=== PATIENT | male | born 1955 ===

== ENCOUNTER 2020-03-13 08:16 | Day surgery (SDC) | payer BC ==
[~2020-03-13 08:16] MED LIST: EPINEPHrine 1 MG/ML 30 ML MDV IRR SCH; Ketorolac 15 MG/ML SDV ONE; Lactated Ringers 1,000 ML ONE; Lidocaine 1% 4 ML ONE; Lidocaine 1%/Sod Bicarbonate in NS 8.4% 1 ML Syringe IDERM PRN; Midazolam 1 MG/ML 2 ML SDV ONE; Ondansetron 4 MG/2 ML SDV ONE; Propofol 200 MG/20 ML SDV ONE; Rocuronium 50 MG/5 ML Vial ONE; Sodium Chloride 0.9% 10 ML Syringe FLUSH PRN; Succinylcholine/Sod PF 100 MG/5 ML SYRINGE IV ONE; ceFAZolin 1 GM Vial ONE; fentaNYL 100 MCG/2 ML SDV ONE
[2020-03-13] MEDS: Lactated Ringers 1,000 ML IV SCH ×2 (08:28→11:32)
--- NOTE | 2020-03-13 09:11 | PCM.PREANE ---
Preanesthetic Assessment - Procedure Proposed Procedure: Left knee video arthroscopy with partial medial menisectomy - Anesthesia/Transfusion/Family Hx Anesthesia History: Prior Anesthesia Without Reaction Family History of Anesthesia Reaction: No - Review of Systems General: No Symptoms Pulmonary: No Symptoms Cardiovascular: Other (Negative stress test and cardiac work up in 2018 ) Gastrointestinal: Other (History of gastroparesis had an EGD and was positive for H Pylori, has been treated and no longer has symptoms, currently weaning of his medications and is down to every other day with no heartburn symptoms. ) Neurological: No Symptoms Other: Reports: Diabetes (Type II, well controlled per patient. 162 mg/dl at 0831 today. ) - Physical Assessment NPO Status Date: 03/12/20 NPO Status Time: 19:00 (Soup) Vital Signs: Last Vital Signs Temp 36.2 C 03/13/20 08:10 Pulse 77 03/13/20 08:10 Resp 19 03/13/20 08:10 BP 124/74 03/13/20 08:10 Pulse Ox 97 03/13/20 08:10 Height: 1.73 m Weight: 93.9 kg ASA Class: 2 Mental Status: Alert & Oriented x3 Airway Class: Mallampati = 3 Dentition: Reports: [employer] Thyro-Mental Finger Breadths: 3 Mouth Opening Finger Breadths: 3 ROM/Head Extension: Full (Abreu) Lungs: Clear to Auscultation, Normal Respiratory Effort Cardiovascular: Regular Rate, Regular Rhythm - Lab Values: Laboratory Last Values POC Glucose 162 mg/dL (80-115) H 03/13/20 08:31 MRSA (PCR) Negative 02/27/20 13:25 - Allergies Allergies/Adverse Reactions: Allergies Allergy/AdvReac Type Severity Reaction Status Date / Time lisinopril Allergy Swelling Verified 03/13/20 08:57 - Anesthesia Plan Pre-Op Medication Ordered: Anxiolytic - Acknowledgements Anesthesia Type Planned: General Anesthesia (LMA with gastric suction port. ) Pt an Appropriate Candidate for the Planned Anesthesia: Yes Alternatives and Risks of Anesthesia Discussed w Pt/Guardian: Yes Pt/Guardian Understands and Agrees with Anesthesia Plan: Yes PreAnesthesia Questionnaire HEENT History: Reports: Impaired Vision, Other (See Below) Other HEENT History: wears glasses Cardiovascular History: Reports: High Cholesterol, Hypertension Respiratory History: Reports: None Gastrointestinal History: Reports: Hiatal Hernia, Other (See Below) Other Gastrointestinal History: barretts, elevated LFTs, gastroparesis Genitourinary History: Reports: None SEARCH OPTIMIZATION ANALYST History: Reports: None Musculoskeletal History: Reports: Other (See Below) Other Musculoskeletal History: left meniscus injury Neurological History: Reports: None Psychiatric History: Reports: None Endocrine/Metabolic History: Reports: Diabetes, Type II Hematologic History: Reports: None Immunologic History: Reports: None Oncologic (Cancer) History: Reports: None Dermatologic History: Reports: None - Infectious Disease History Infectious Disease History: Reports: None - Past Surgical History Head Surgeries/Procedures: Reports: None HEENT Surgical History: Reports: None Cardiovascular Surgical History: Reports: None Respiratory Surgical History: Reports: None GI Surgical History: Reports: Appendectomy, Colonoscopy, EGD Female Surgical History: Reports: None Male Surgical History: Reports: None Endocrine Surgical History: Reports: None Neurological Surgical History: Reports: None Musculoskeletal Surgical History: Reports: None Oncologic Surgical History: Reports: None Dermatological Surgical History: Reports: None - SUBSTANCE USE Tobacco Use Status *Q: Never Tobacco User Recreational Drug Use History: No - HOME MEDS Home Medications: Home Meds Losartan [Cozaar] 100 mg PO DAILY 03/23/16 [History] Simvastatin 40 mg PO DAILY 03/23/16 [History] metFORMIN [Glucophage] 1,000 mg PO BID 03/23/16 [History] Empagliflozin [Jardiance] 10 mg PO DAILY 03/12/20 [History] L.acidoph,Paracasei, B.lactis [Probiotic] 1 cap PO DAILY 03/12/20 [History] Liraglutide [Victoza] 1.8 mg SQ DAILY 03/12/20 [History] Metoclopramide [Reglan] 5 mg PO BEDTIME 03/12/20 [History] Acetaminophen/HYDROcodone [[place] 325-5 MG] 1 - 2 tab PO Q6H PRN #20 tablet 03/13/20 [Rx] Aspirin [Aspirin EC] 325 mg PO BID #84 tab 03/13/20 [Rx] - CURRENT (IN HOUSE) MEDS Current Meds: Current Medications Epinephrine HCl (Adrenalin) 3 mg IRR ONETIME KHRIS Stop: 03/13/20 18:00 Lactated Ringer's (Ringers, Lactated) 1,000 mls @ 125 mls/hr IV ASDIRECTED KHRIS Stop: 03/13/20 23:00 Last Admin: 03/13/20 08:28 Dose: 125 mls/hr Documented by: Lidocaine/Sodium Bicarbonate (Buffered Lidocaine 1% In Ns 8.4%) 0.25 ml IDERM ONETIME PRN PRN Reason: Prior to IV Start Stop: 03/13/20 18:00 Sodium Chloride (Saline Flush) 10 ml FLUSH ASDIRECTED PRN PRN Reason: Keep Vein Open Stop: 03/13/20 18:00 Discontinued Medications Cefazolin Sodium (Ancef) Confirm Administered Dose 2 gm .ROUTE .STK-MED ONE Stop: 03/13/20 07:58 Fentanyl (Sublimaze) Confirm Administered Dose 100 mcg .ROUTE .STK-MED ONE Stop: 03/13/20 08:00 Lidocaine HCl (Xylocaine-Mpf 1%) Confirm Administered Dose 4 mls @ as directed .ROUTE .STK-MED ONE Stop: 03/13/20 07:58 Lactated Ringer's (Ringers, Lactated) Confirm Administered Dose 1,000 mls @ as directed .ROUTE .STK-MED ONE Stop: 03/13/20 07:58 Ketorolac Tromethamine (Toradol) Confirm Administered Dose 15 mg .ROUTE .STK-MED ONE Stop: 03/13/20 07:59 Midazolam HCl (Versed 1 Mg/Ml) Confirm Administered Dose 2 mg .ROUTE .STK-MED ONE Stop: 03/13/20 07:59 Ondansetron HCl (Zofran) Confirm Administered Dose 4 mg .ROUTE .STK-MED ONE Stop: 03/13/20 07:58 Propofol (Diprivan 20 Ml) Confirm Administered Dose 400 mg .ROUTE .STK-MED ONE Stop: 03/13/20 07:59 Rocuronium [place] (Zemuron) Confirm Administered Dose 50 mg .ROUTE .STK-MED ONE Stop: 03/13/20 07:58
[2020-03-13] MEDS ORDERED: Bupivacaine 0.25% 10 ML SDV ONE (09:36)
[2020-03-13] MEDS ORDERED: Ketamine 500 mg/10 ML MDV ONE (10:18)
[2020-03-13] MEDS ORDERED: ePHEDrine 50 MG/ML SDV ONE (10:43)
--- NOTE | 2020-03-13 11:11 | PCM.POSTAN ---
POST ANESTHESIA ASSESSMENT - MENTAL STATUS Mental Status: Somnolent - VITAL SIGNS Vital Signs: Last Vital Signs Temp 36.2 C 03/13/20 08:10 Pulse 77 03/13/20 08:10 Resp 19 03/13/20 08:10 BP 124/74 03/13/20 08:10 Pulse Ox 97 03/13/20 08:10 - RESPIRATORY Respiratory Status: Respiratory Rate WNL, Airway Patent, O2 Saturation Stable, Supplemental Oxygen - CARDIOVASCULAR CV Status: Pulse Rate WNL, Blood Pressure Stable - GASTROINTESTINAL GI Status: No Symptoms - PAIN Pain Score: 0 - POST OP HYDRATION Hydration Status: Adequate & Stable
--- NOTE | 2020-03-13 11:58 | PCM.OPNOTE ---
- General Post-Op/Procedure Note Date of Surgery/Procedure: 03/13/20 Operative Procedure(s): left knee video arthroscopy with partial median meniscectomy, medial femoral condyle chondroplasty and partial synovectomy Pre Op Diagnosis: left knee medial meniscus tear with chondromalacia Post-Op Diagnosis: same with fat pad impingement Anesthesia Technique: General LMA, Local Primary Surgeon: Abrahan Rodgers Anesthesia Provider: Maria Elena Rojas Stretch Machine Operator: Susan Jacob in mLs: 5 Complications: None Condition: Good
--- NOTE | 2020-03-13 13:24 | PCM48HPAN ---
Post Anesthesia Note - EVALUATION WITHIN 48HRS OF ANESTHETIC Vital Signs in Normal Range: Yes Patient Participated in Evaluation: Yes Respiratory Function Stable: Yes Airway Patent: Yes Cardiovascular Function Stable: Yes Hydration Status Stable: Yes Pain Control Satisfactory: Yes Nausea and Vomiting Control Satisfactory: Yes Mental Status Recovered: Yes Vital Signs: Last Vital Signs Temp 36.5 C 03/13/20 11:35 Pulse 72 03/13/20 12:00 Resp 20 03/13/20 12:00 BP 116/65 03/13/20 12:00 Pulse Ox 95 03/13/20 12:00
[2020-03-13 15:39] VITALS: BP 124/75; PULSE 74
--- NOTE | 2020-03-23 18:35 | OR ---
DATE OF OPERATION: 03/13/2020 SURGEON: Abrahan Rodgers MD OPERATION PERFORMED: Left knee video arthroscopy, partial medial meniscectomy, medial femoral condyle chondroplasty, and partial synovectomy. PREOPERATIVE DIAGNOSIS: Left knee medial meniscus tear with chondromalacia. POSTOPERATIVE DIAGNOSIS: Left knee medial meniscus tear with chondromalacia with fat pad impingement. ANESTHESIA: General LMA with local. ANESTHESIA PROVIDER: Viktoriya Agee. COAL OR ORE CONTROLLER: Susan Jacob PA-C. ESTIMATED BLOOD LOSS: Less than 5 mL. COMPLICATIONS: None. CONDITION: Stable. DESCRIPTION OF PROCEDURE: The patient was identified in the preoperative holding area. Proper site was marked and identified by surgeon. The patient was taken back to the operative theater, where after adequate anesthesia, the patient's right lower extremity was placed in a well leg womack. Left lower extremity had a nonsterile tourniquet applied and was placed in a C-clamp womack. Foot of bed was then lowered. Left lower extremity was then sterilely prepped and draped in the usual sterile fashion. OR time-out was performed. The patient received 2 g IV Ancef. At this time, left lower extremity was exsanguinated. Tourniquet was insufflated to 250 mmHg. Standard anterior lateral portal incision was made and scope trocar was introduced. The patient had grade 2 chondromalacia of the patellofemoral joint as well as significant overgrowth of the fat pad with fat pad impingement. Attention was turned to the medial compartment. Anteromedial portal was created with the use of a spinal needle. The patient was noted to have degenerative medial meniscus tear as well as grade 3 chondromalacia of the medial femoral condyle. At this time, a partial meniscectomy was performed of the undersurface portion of the tear that was found to be unstable. Attention was turned to the chondroplasty to back to a stable rim on the medial femoral condyle with no loose fragments. ACL was intact in the notch. Lateral compartment showed minimal chondromalacia changes and no meniscal tear. At this time, a partial synovectomy was performed of the fat pad back to a stable rim, so would not impinge in the patellofemoral joint. Excess saline was drained from the knee. 3-0 nylon suture was used for closure of the skin. The patient had a sterile soft dressing applied and sent to PACU in stable condition. MMODAL /[id number]
== END 2020-03-13 13:00 | disposition home or self-care (01) ==
LOC: JD.SDS 08:16
PROVIDERS: ATTEND Orthopaedic Surgery
DX: S83.242A Other tear of medial meniscus, current injury, left knee, initial encounter (principal); M25.862 Other specified joint disorders, left knee; M94.262 Chondromalacia, left knee; E78.5 Hyperlipidemia, unspecified; I10 Essential (primary) hypertension; E11.43 Type 2 diabetes mellitus with diabetic autonomic (poly)neuropathy; K31.84 Gastroparesis; R79.89 Other specified abnormal findings of blood chemistry; Z88.8 Allergy status to other drugs, medicaments and biological substances; Z79.82 Long term (current) use of aspirin; Z79.899 Other long term (current) drug therapy; Z79.84 Long term (current) use of oral hypoglycemic drugs; Z90.49 Acquired absence of other specified parts of digestive tract; Z98.890 Other specified postprocedural states
CPT/HCPCS: 29875; 29881; 82962; 87641; J0690; J1885; J2001; J2250; J2405; J2704; J3010; J3490; J7120; 01400; J0330